=== PATIENT | female | born 1975 | race Caucasian/White ===

== ENCOUNTER 2017-01-15 10:25 | Day surgery (SDC) | payer OTHER ==
[~2017-01-15 10:25] MED LIST: Lactated Ringers 1,000 ML IV SCH
--- NOTE | 2017-01-15 11:19 | PCM.PREANE ---
Preanesthetic Assessment - Anesthesia/Transfusion/Family Hx Anesthesia History: Prior Anesthesia Without Reaction Family History of Anesthesia Reaction: No Transfusion History: No Prior Transfusion(s) - Review of Systems General: No Symptoms Pulmonary: No Symptoms Cardiovascular: No Symptoms Gastrointestinal: No symptoms Neurological: No Symptoms Other: Reports: None - Physical Assessment NPO Status Date: 01/14/17 O2 Sat by Pulse Oximetry: 97 Respiratory Rate: 16 Vital Signs: Last Vital Signs Temp 36.8 C 01/15/17 10:50 Pulse 100 01/15/17 10:50 Resp 16 01/15/17 10:50 BP 122/68 01/15/17 10:50 Pulse Ox 97 01/15/17 10:50 Height: 1.57 m Weight: 90.718 kg ASA Class: 2 Mental Status: Alert & Oriented x3 Airway Class: Mallampati = 1 Dentition: Reports: Normal Dentition ROM/Head Extension: Full Lungs: Clear to auscultation, Normal respiratory effort Cardiovascular: Regular Rate - Lab Values: Laboratory Last Values WBC 7.37 K/uL (4.0-11.0) 01/15/17 10:45 RBC 4.60 M/uL (4.30-5.90) 01/15/17 10:45 Hgb 11.6 g/dL (12.0-16.0) L 01/15/17 10:45 Hct 36.7 % (36.0-46.0) 01/15/17 10:45 MCV 79.8 fL (80.0-98.0) L 01/15/17 10:45 MCH 25.2 pg (27.0-32.0) L 01/15/17 10:45 MCHC 31.6 g/dL (31.0-37.0) 01/15/17 10:45 RDW Std Deviation 43.5 fl (28.0-62.0) 01/15/17 10:45 RDW Coeff of Arlin 15 % (11.0-15.0) 01/15/17 10:45 Plt Count 264 K/uL (150-400) 01/15/17 10:45 MPV 9.70 fL (7.40-12.00) 01/15/17 10:45 Nucleated RBC % 0.0 /100WBC 01/15/17 10:45 Nucleated RBCs # 0 K/uL 01/15/17 10:45 - Allergies Allergies/Adverse Reactions: Allergies Allergy/AdvReac Type Severity Reaction Status Date / Time No Known Allergies Allergy Verified 01/09/17 12:08 - Anesthesia Plan Pre-Op Medication Ordered: None - Acknowledgements Anesthesia Type Planned: General Anesthesia Pt an Appropriate Candidate for the Planned Anesthesia: Yes Alternatives and Risks of Anesthesia Discussed w Pt/Guardian: Yes Pt/Guardian Understands and Agrees with Anesthesia Plan: Yes PreAnesthesia Questionnaire HEENT History: Reports: None Cardiovascular History: Reports: Other (see below) Other Cardiovascular History: had "something in her leg" and had to stop taking comtrol pills....no anticoagulants taken Respiratory History: Reports: None Gastrointestinal History: Reports: GERD Genitourinary History: Reports: None 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: Musculoskeletal History: Reports: None Neurological History: Reports: None Psychiatric History: Reports: Anxiety Endocrine/Metabolic History: Reports: Obesity/BMI 30+ Hematologic History: Reports: None Immunologic History: Reports: None Oncologic (Cancer) History: Reports: None Dermatologic History: Reports: Other (see below) Other Dermatologic History: "cold sores" - Past Surgical History Head Surgeries/Procedures: Reports: None HEENT Surgical History: Reports: None Cardiovascular Surgical History: Reports: None Respiratory Surgical History: Reports: None GI Surgical History: Reports: Cholecystectomy, Other (see below) Other GI Surgeries/Procedures: abdominoplasty Female Surgical History: Reports: None Endocrine Surgical History: Reports: None Neurological Surgical History: Reports: None Musculoskeletal Surgical History: Reports: None Oncologic Surgical History: Reports: None Dermatological Surgical History: Reports: None - SUBSTANCE USE Smoking Status *Q: Never Smoker Tobacco Use Within Last Twelve Months: No Recreational Drug Use History: No - HOME MEDS Home Medications: Home Meds Famciclovir 3 tab PO ASDIRECTED PRN 01/09/17 [History] Multivitamin [Multivitamins] 1 tab PO DAILY 01/09/17 [History] Venlafaxine [Effexor XR] 150 mg PO DAILY 01/09/17 [History] - CURRENT (IN HOUSE) MEDS Current Meds: Current Medications Lactated Ringer's (Ringers, Lactated) 1,000 mls @ 125 mls/hr IV ASDIRECTED JULIANNA Discontinued Medications Lactated Ringer's (Ringers, Lactated) 1,000 mls @ 125 mls/hr IV ASDIRECTED JULIANNA Lactated Ringer's (Ringers, Lactated) 1,000 mls @ 125 mls/hr IV ASDIRECTED JULIANNA
[2017-01-15] MEDS ORDERED: Lidocaine 2% 5 ML SDV ONE (11:33)
[2017-01-15] MEDS ORDERED: fentaNYL 100 MCG/2 ML SDV ONE (11:33)
[2017-01-15] MEDS ORDERED: Propofol 200 MG/20 ML SDV ONE (11:33)
[2017-01-15] MEDS ORDERED: Midazolam 1 MG/ML 2 ML SDV ONE (11:33)
[2017-01-15] MEDS ORDERED: fentaNYL 100 MCG/2 ML SDV IVPUSH PRN (12:11)
[2017-01-15] MEDS ORDERED: Ketorolac 30 MG/ML SDV ONE (12:19)
[2017-01-15] MEDS ORDERED: Ondansetron 4 MG/2 ML SDV ONE (12:19)
--- NOTE | 2017-01-15 12:33 | PCM.OPNOTE ---
- General Post-Op/Procedure Note Date of Surgery/Procedure: 01/15/17 Operative Procedure(s): hysteroscopic polypectomy, fractional dilatation and curettage, thermal endometrial ablation. Findings: Uterus anteverted, 9 week size, sounds to 8 cm, cervix sounds to 4 cm. Fundal polyp removed, prominent endometrium, bilateral tubal ostia identified. Pre Op Diagnosis: menorrhagia, endometrial polyp Post-Op Diagnosis: Same Anesthesia Technique: General LMA Primary Surgeon: Mar Boswell Anesthesia Provider: Nessa Gunn Pathology: endometrial polyp, endometrial curettings (1), endometrial curettings (2), endocervical curettings. Fluid Replacement, Intraop: 1,100 EBL in mLs: 20 Drain/Tube Comments:: hysteroscopic deficit 170 ml NS Complications: None Known Condition: Good
--- NOTE | 2017-01-15 13:08 | PCM.POSTAN ---
POST ANESTHESIA ASSESSMENT - MENTAL STATUS Mental Status: alert, oriented - RESPIRATORY Respiratory Status: respiratory rate WNL, airway patent - CARDIOVASCULAR CV Status: pulse rate WNL, blood pressure stable - GASTROINTESTINAL GI Status: no symptoms - POST OP HYDRATION Hydration Status: adequate & stable
--- NOTE | 2017-01-15 13:40 | PCM48HPAN ---
Post Anesthesia Note - EVALUATION WITHIN 48HRS OF ANESTHETIC Vital Signs in Normal Range: Yes Patient Participated in Evaluation: Yes Respiratory Function Stable: Yes Airway Patent: Yes Cardiovascular Function Stable: Yes Hydration Status Stable: Yes Pain Control Satisfactory: Yes Nausea and Vomiting Control Satisfactory: Yes Mental Status Recovered: Yes
[2017-01-15 13:56] VITALS: BP 155/90
--- NOTE | 2017-01-15 19:59 | OR ---
SURGEON: Mar Boswell M.D. DATE OF PROCEDURE: 01/15/2017 PREOPERATIVE DIAGNOSES: Menorrhagia, uterine polyp. POSTOPERATIVE DIAGNOSES: Menorrhagia, uterine polyp. PROCEDURE: Hysteroscopic polypectomy, fractional D and C with thermal endometrial ablation. ANESTHESIA: General LMA. ESTIMATED BLOOD LOSS: 20 mL. FLUIDS: 1100 mL of crystalloid. HYSTEROSCOPIC DEFICIT: 170 mL of normal saline. FINDINGS: Uterus is anteverted 9 weeks size, sounds to 8 cm, cervix sounds to 4 cm. There was a fundal uterine polyp, bilateral tubal ostia were identified. COMPLICATIONS: None known. DISPOSITION: Stable to recovery. BRIEF HISTORY: This is a 41-year-old female with heavy periods. She has had a benign endometrial biopsy in the office as well as a saline enhanced ultrasound which showed a fundal polyp and no other lesions. She has been offered Lysteda, hormonal management, IUD, endometrial ablation with polypectomy. She desires to proceed with a thermal endometrial ablation with hysteroscopic polypectomy with risks discussed including bleeding, infection, uterine perforation with injury to surrounding organs, risk of scarring within the uterus potentially causing a hematometra, risk of masking future endometrial cancer, understanding all these risks, she does desire to proceed. She also understands that she must never become following the ablation as disastrous outcomes can occur with a . Her has had a vasectomy. DESCRIPTION OF PROCEDURE: With the patient in dorsal lithotomy position, under adequate general LMA, analgesia, the perineum and vagina were prepped with Betadine and draped in the usual fashion for vaginal surgery. Bimanual examination revealed an anteverted 9 weeks size uterus. Speculum was placed into the vagina. The anterior lip of the cervix was grasped with an Allis clamp. The cervix easily was dilated to an 8 mm Hegar dilator. The 6.5 mm hysteroscope was placed into the uterine cavity with excellent visualization, bilateral tubal ostia were identified, the fundal polyp was identified, the endometrium was overall prominent, but with no discrete lesions. The MyoSure Reach was then utilized to excise the polyp which was performed without any difficulty. The trap of tissue was sent as a separate specimen for polyp, then I wanted to proceed with endometrial curettage utilizing the MyoSure. However after resetting the trap for the tissue the MyoSure only worked for approximately 30 seconds and I was unable to continue with it, therefore, the MyoSure and hysteroscope were removed from the uterine cavity. Sharp curettage of the endocervix was performed and the tissue was collected with a Cytobrush. Sharp curettage of the uterine endometrium was then performed with a fairly large amount of tissue obtained, this being completed, the Cassandra ablation system was set up. The cervical stop was placed at 4 cm. The uterus had previously been sounded to 8 cm. The system was prepared and the arms were retracted inward. The ablation system was placed to the uterine fundus. The arms were then opened, the balloon was filled, the test of integrity for this system was performed and was intact with a 2 minute cycle was initiated. Once a 2 minute cycle was completed, the balloon was deflated, the arms were retracted and the tip was removed. All of the instruments were removed from the vagina. Final sponge, needle, and instrument counts were reported as correct. There were no known complications. The patient was transferred to recovery in good condition. SUMA MOY /[id number]
== END 2017-01-15 13:40 | disposition home or self-care (01) ==
LOC: MW.SDS 10:25
PROVIDERS: ATTEND Obstetrics & Gynecology
PROC: 0UB98ZX Excision of Uterus, Via Natural or Artificial Opening Endoscopic, Diagnostic (ICD-10-PCS; principal; 2017-01-15)
PROC: 0UDB8ZX Extraction of Endometrium, Via Natural or Artificial Opening Endoscopic, Diagnostic (ICD-10-PCS; 2017-01-15)
DX: N84.0 Polyp of corpus uteri (principal); G43.909 Migraine, unspecified, not intractable, without status migrainosus; F32.9 Major depressive disorder, single episode, unspecified; Z79.899 Other long term (current) drug therapy; Z98.890 Other specified postprocedural states; N92.0 Excessive and frequent menstruation with regular cycle
CPT/HCPCS: 36415; 58558; 84703; 85027; J1885; J2250; J2405; J3010; 00952; 88305; J2704

== ENCOUNTER 2018-07-04 11:26 | Emergency (ER) | payer OTHER ==
--- NOTE | 2018-07-04 11:28 | EDM.PDOC ---
ED HPI GENERAL MEDICAL PROBLEM - General Stated Complaint: SORE THROAT Time Seen by Provider: 07/04/18 11:28 Source of Information: Reports: Patient - History of Present Illness INITIAL COMMENTS - FREE TEXT/NARRATIVE: HISTORY AND PHYSICAL: History of present illness: []Sore throat for 24 hours increasing in severity no trouble with liquids some difficulty with solid food, recent strep contact No Drooling trismus or muffled voice Review of systems: As per history of present illness and below otherwise all systems reviewed and negative. Past medical history: As per history of present illness and as reviewed below otherwise noncontributory. Surgical history: As per history of present illness and as reviewed below otherwise noncontributory. Social history: No reported history of drug or alcohol abuse. Family history: As per history of present illness and as reviewed below otherwise noncontributory. Physical exam: HEENT: Atraumatic, normocephalic, pupils reactive, negative for conjunctival pallor or scleral icterus, mucous membranes moist, throat clear, neck supple, nontender, trachea midline. Moderate erythema anterior lymph chain tenderness and swelling Lungs: Clear to auscultation, breath sounds equal bilaterally, chest nontender. Heart: S1S2, regular, negative for clicks, rubs, or JVD. Abdomen: Soft, nondistended, nontender. Negative for masses or hepatosplenomegaly. Negative for costovertebral tenderness. Pelvis: Stable nontender. Genitourinary: Deferred. Rectal: Deferred. Extremities: Atraumatic, negative for cords or calf pain. Neurovascular unremarkable. Neuro: Awake, alert, oriented. Cranial nerves II through XII unremarkable. Cerebellum unremarkable. Motor and sensory unremarkable throughout. Exam nonfocal. Diagnostics: []Clinical Therapeutics: []Gram Rocephin IM Amoxicillin Impression: [] pharyngitis Definitive disposition and diagnosis as appropriate pending reevaluation and review of above. - Related Data Allergies Allergy/AdvReac Type Severity Reaction Status Date / Time No Known Allergies Allergy Verified 01/09/17 12:08 Home Meds: Home Meds Famciclovir 3 tab PO ASDIRECTED PRN 01/09/17 [History] Multivitamin [Multivitamins] 1 tab PO DAILY 01/09/17 [History] Venlafaxine [Effexor XR] 150 mg PO DAILY 01/09/17 [History] Acetaminophen/oxyCODONE [Percocet 325-5 MG] 1 tab PO Q6H PRN #10 tablet [Rx] Ibuprofen [IMW: Ibuprofen] 600 mg PO .EVERY 8 HOURS PRN #30 tab 01/15/17 [Rx] Past Medical History HEENT History: Reports: None Cardiovascular History: Reports: Other (See Below) Other Cardiovascular History: had "something in her leg" and had to stop taking comtrol pills....no anticoagulants taken Respiratory History: Reports: None Gastrointestinal History: Reports: GERD Genitourinary History: Reports: None 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: Musculoskeletal History: Reports: None Neurological History: Reports: None Psychiatric History: Reports: Anxiety Endocrine/Metabolic History: Reports: Obesity/BMI 30+ Hematologic History: Reports: None Immunologic History: Reports: None Oncologic (Cancer) History: Reports: None Dermatologic History: Reports: Other (See Below) Other Dermatologic History: "cold sores" - Past Surgical History GI Surgical History: Reports: Cholecystectomy, Other (See Below) Social & Family History - Family History Family Medical History: Noncontributory ED ROS GENERAL - Review of Systems Review Of Systems: See Below ED EXAM, GENERAL - Physical Exam Exam: See Below Departure - Departure Time of Disposition: 11:36 Disposition: Home, Self-Care 01 Condition: Good Clinical Impression: Pharyngitis - Discharge Information Additional Instructions: The following information is given to patients seen in the emergency department who are being discharged to home. This information is to outline your options for follow-up care. We provide all patients seen in our emergency department with a follow-up referral. The need for follow-up, as well as the timing and circumstances, are variable depending upon the specifics of your emergency department visit. If you don't have a primary care physician on staff, we will provide you with a referral. We always advise you to contact your personal physician following an emergency department visit to inform them of the circumstance of the visit and for follow-up with them and/or the need for any referrals to a consulting specialist. The emergency department will also refer you to a specialist when appropriate. This referral assures that you have the opportunity for follow-up care with a specialist. All of these measure are taken in an effort to provide you with optimal care, which includes your follow-up. Under all circumstances we always encourage you to contact your private physician who remains a resource for coordinating your care. When calling for follow-up care, please make the office aware that this follow-up is from your recent emergency room visit. If for any reason you are refused follow-up, please contact the [facility] emergency department at and asked to speak to the emergency department charge nurse.
[2018-07-04] MEDS ORDERED: cefTRIAXone 1,000 MG in Lidocaine 1% 4 ML IM ONE (11:36)
[2018-07-04 12:03] VITALS: BP 150/95
== END 2018-07-04 12:00 | disposition home or self-care (01) ==
LOC: MW.ED 11:26
DX: J02.9 Acute pharyngitis, unspecified (principal); E66.9 Obesity, unspecified
CPT/HCPCS: 96372; 99282; J0696; J2001

== ENCOUNTER 2019-07-13 07:49 | Day surgery (SDC) | payer OTHER ==
[2019-07-12 14:56] LABS: BLOOD UREA NITROGEN,BUN 16 mg/dL (7.0-18.0); CARBON DIOXIDE,CO2 28.5 mmol/L (21.0-32.0); CHLORIDE,CL 103 mmol/L (98-107); GLUCOSE RANDOM 98 mg/dL (74-106); POTASSIUM,K 4.1 mmol/L (3.5-5.1); SODIUM,NA 140 mmol/L (136-145)
[~2019-07-13 07:49] MED LIST changes: +Fluorescein 5 ML Vial ONE; +Glycopyrrolate 0.2 MG/ML SDV ONE; -Lactated Ringers 1,000 ML IV SCH; +Lidocaine 2% 5 ML SDV ONE; +Midazolam 1 MG/ML 2 ML SDV ONE; +Neostigmine Methylsulfate 1 MG/ML 5 ML Syringe ONE; +Ondansetron 4 MG/2 ML SDV ONE; +Propofol 200 MG/20 ML SDV ONE; +Rocuronium 100 MG/10 ML Syringe ONE; +fentaNYL 250 MCG/5 ML SDV ONE
[2019-07-13] MEDS: Lactated Ringers 1,000 ML IV SCH ×2 (08:12→17:21)
[2019-07-13] MEDS ORDERED: Scopolamine 1.5 MG Transdermal Patch TRDERM PRN (08:16)
--- NOTE | 2019-07-13 08:16 | PCM.PREANE ---
Preanesthetic Assessment - Anesthesia/Transfusion/Family Hx Anesthesia History: Prior Anesthesia Without Reaction Family History of Anesthesia Reaction: No Transfusion History: No Prior Transfusion(s) - Review of Systems General: No Symptoms Pulmonary: No Symptoms Cardiovascular: No Symptoms Gastrointestinal: No Symptoms Neurological: No Symptoms Other: Reports: None - Physical Assessment Height: 5 ft 1.75 in Weight: 94.801 kg ASA Class: 2 Mental Status: Alert & Oriented x3 Airway Class: Mallampati = 2 Dentition: Reports: Normal Dentition ROM/Head Extension: Full Lungs: Clear to Auscultation, Normal Respiratory Effort Cardiovascular: Regular Rate, Regular Rhythm - Lab Values: Laboratory Last Values WBC 8.11 K/uL (4.0-11.0) 07/12/19 13:42 RBC 4.61 M/uL (4.30-5.90) 07/12/19 13:42 Hgb 12.5 g/dL (12.0-16.0) 07/12/19 13:42 Hct 37.9 % (36.0-46.0) 07/12/19 13:42 MCV 82.2 fL (80.0-98.0) 07/12/19 13:42 MCH 27.1 pg (27.0-32.0) 07/12/19 13:42 MCHC 33.0 g/dL (31.0-37.0) 07/12/19 13:42 RDW Std Deviation 44.0 fl (28.0-62.0) 07/12/19 13:42 RDW Coeff of Arlin 15 % (11.0-15.0) 07/12/19 13:42 Plt Count 284 K/uL (150-400) 07/12/19 13:42 MPV 10.50 fL (7.40-12.00) 07/12/19 13:42 Nucleated RBC % 0.0 /100WBC 07/12/19 13:42 Nucleated RBCs # 0 K/uL 07/12/19 13:42 Sodium 140 mmol/L (136-145) 07/12/19 13:42 Potassium 4.1 mmol/L (3.5-5.1) 07/12/19 13:42 Chloride 103 mmol/L (98-107) 07/12/19 13:42 Carbon Dioxide 28.5 mmol/L (21.0-32.0) 07/12/19 13:42 BUN 16 mg/dL (7.0-18.0) 07/12/19 13:42 Creatinine 1.1 mg/dL (0.6-1.0) H 07/12/19 13:42 Est Cr Clr Drug Dosing 51.03 mL/min 07/12/19 13:42 Estimated GFR (MDRD) 54.0 ml/min 07/12/19 13:42 Glucose 98 mg/dL (74-106) 07/12/19 13:42 Calcium 8.8 mg/dL (8.5-10.1) 07/12/19 13:42 HCG, Quant < 1.0 mIU/mL 07/12/19 13:42 Blood Type A POSITIVE 07/12/19 13:42 Antibody Screen NEGATIVE 07/12/19 13:42 - Allergies Allergies/Adverse Reactions: Allergies Allergy/AdvReac Type Severity Reaction Status Date / Time No Known Allergies Allergy Verified 07/08/19 08:16 - Blood Blood Available: No - Anesthesia Plan Pre-Op Medication Ordered: Other (scop patch) - Acknowledgements Anesthesia Type Planned: General Anesthesia Pt an Appropriate Candidate for the Planned Anesthesia: Yes Alternatives and Risks of Anesthesia Discussed w Pt/Guardian: Yes Pt/Guardian Understands and Agrees with Anesthesia Plan: Yes Additional Comments: PMH: migraines rxed with imitrex PLAN: GA with LMA or ETT PreAnesthesia Questionnaire - Past Health History Medical/Surgical History: Denies Medical/Surgical History HEENT History: Reports: None Cardiovascular History: Reports: Other (See Below) Other Cardiovascular History: had "something in her leg" and had to stop taking comtrol pills....no anticoagulants taken, BP elevated at clinic Respiratory History: Reports: None Gastrointestinal History: Reports: GERD Other Gastrointestinal History: occasional reflux at night Genitourinary History: Reports: None 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: Musculoskeletal History: Reports: None Neurological History: Reports: Migraines Psychiatric History: Reports: Anxiety Endocrine/Metabolic History: Reports: Obesity/BMI 30+ Hematologic History: Reports: None Immunologic History: Reports: None Oncologic (Cancer) History: Reports: None Dermatologic History: Reports: None - Past Surgical History Head Surgeries/Procedures: Reports: None HEENT Surgical History: Reports: None Cardiovascular Surgical History: Reports: None Respiratory Surgical History: Reports: None GI Surgical History: Reports: Cholecystectomy, Other (See Below) Other GI Surgeries/Procedures: abdominoplasty Female Surgical History: Reports: D&C, Endometrial Ablation Other Female Surgeries/Procedures: hysteroscopy, polypectomy, D&C, thermal endometrial ablation Endocrine Surgical History: Reports: None Neurological Surgical History: Reports: None Musculoskeletal Surgical History: Reports: None Oncologic Surgical History: Reports: None Dermatological Surgical History: Reports: None - HOME MEDS Home Medications: Home Meds Famciclovir 3 tab PO ASDIRECTED PRN 01/09/17 [History] Multivitamin [Multivitamins] 1 tab PO DAILY 01/09/17 [History] SUMAtriptan Succinate [Imitrex] 100 mg PO ASDIRECTED PRN 07/08/19 [History] Venlafaxine HCl [Venlafaxine ER] 150 mg PO DAILY 07/08/19 [History] valACYclovir [Valtrex] 1,000 mg PO ASDIRECTED PRN 07/08/19 [History] - CURRENT (IN HOUSE) MEDS Current Meds: Current Medications Lactated Ringer's (Ringers, Lactated) 1,000 mls @ 100 mls/hr IV ASDIRECTED JULIANNA Last Admin: 07/13/19 08:12 Dose: 100 mls/hr Discontinued Medications Fentanyl (Sublimaze) Confirm Administered Dose 250 mcg .ROUTE .STK-MED ONE Stop: 07/13/19 07:00 Fluorescein Sodium (Ak-Fluor) Confirm Administered Dose 5 ml .ROUTE .STK-MED ONE Stop: 07/13/19 07:44 Glycopyrrolate (Robinul) Confirm Administered Dose 0.4 mg .ROUTE .STK-MED ONE Stop: 07/13/19 07:00 Lidocaine (Xylocaine-Mpf 2%) Confirm Administered Dose 5 ml .ROUTE .STK-MED ONE Stop: 07/13/19 07:00 Midazolam HCl (Versed 1 Mg/Ml) Confirm Administered Dose 2 mg .ROUTE .STK-MED ONE Stop: 07/13/19 07:00 Neostigmine Methylsulfate (Neostigmine) Confirm Administered Dose 5 mg .ROUTE .STK-MED ONE Stop: 07/13/19 07:00 Ondansetron HCl (Zofran) Confirm Administered Dose 4 mg .ROUTE .STK-MED ONE Stop: 07/13/19 07:00 Propofol (Diprivan 20 Ml) Confirm Administered Dose 200 mg .ROUTE .STK-MED ONE Stop: 07/13/19 07:00 Rocuronium [place] (Zemuron) Confirm Administered Dose 100 mg .ROUTE .STK-MED ONE Stop: 07/13/19 07:00
[2019-07-13] MEDS ORDERED: ceFAZolin 1 GM Vial ONE (09:12)
[2019-07-13] MEDS ORDERED: Sodium Chloride 0.9% 20 ML ONE (09:12)
[2019-07-13] MEDS ORDERED: ePHEDrine 50 MG/ML SDV ONE (09:18)
[2019-07-13] MEDS ORDERED: Phenylephrine/Normal Saline 100 MCG/ML 10 ML Syringe ONE (09:20)
[2019-07-13] MEDS ORDERED: Furosemide 40 MG/4 ML VIAL ONE (09:21)
[2019-07-13] MEDS ORDERED: HYDROmorphone 2 MG/ML Syringe ONE (09:35)
--- NOTE | 2019-07-13 10:50 | PCM.OPNOTE ---
- General Post-Op/Procedure Note Date of Surgery/Procedure: 07/13/19 Operative Procedure(s): total vaginal hysterectomy with cystoscopy. Findings: uterus 12 weeks size, with fibroids, on cystoscopy there was copious flow of bright green urine after fluoroscein, no trauma to bladder mucosa Pre Op Diagnosis: menorrhagia Post-Op Diagnosis: Same Anesthesia Technique: General ET Tube Primary Surgeon: Mar Boswell Secondary Surgeon: Jose Rafael Stinson Anesthesia Provider: Charles Morrow Weave Defect Charting Clerk: Charles Bonner Pathology: uterus Fluid Replacement, Intraop: 2,300 EBL in mLs: 200 Complications: None Known Condition: Good
[2019-07-13] MEDS ORDERED: Ketorolac 30 MG/ML SDV IVPUSH ONE (10:51)
[2019-07-13] MEDS ORDERED: Acetaminophen/oxyCODONE 325-5 MG Tab PO PRN ×2 (10:51)
[2019-07-13] MEDS ORDERED: Ondansetron 4 MG/2 ML SDV IVPUSH PRN (10:51)
[2019-07-13] MEDS ORDERED: Ketorolac 30 MG/ML SDV IVPUSH PRN (10:51)
[2019-07-13] MEDS ORDERED: Promethazine 25 MG/ML SDV IM PRN (10:51)
[2019-07-13] MEDS ORDERED: Morphine 4 MG/ML Syringe IVPUSH PRN (10:51)
--- NOTE | 2019-07-13 11:51 | PCM.POSTAN ---
POST ANESTHESIA ASSESSMENT - MENTAL STATUS Mental Status: Alert, Oriented - VITAL SIGNS Vital Signs: Last Vital Signs Temp 97.9 F 07/13/19 10:49 Pulse 102 H 07/13/19 11:34 Resp 8 L 07/13/19 11:34 BP 128/74 07/13/19 11:34 Pulse Ox 99 07/13/19 11:34 - RESPIRATORY Respiratory Status: Respiratory Rate WNL, Airway Patent, O2 Saturation Stable, Supplemental Oxygen - CARDIOVASCULAR CV Status: Pulse Rate WNL, Blood Pressure Stable - GASTROINTESTINAL GI Status: No Symptoms - POST OP HYDRATION Hydration Status: Adequate & Stable
--- NOTE | 2019-07-13 15:06 | OR ---
SURGEON: Mar Boswell M.D. DATE OF PROCEDURE: 07/13/2019 PREOPERATIVE DIAGNOSIS: Menometrorrhagia. POSTOPERATIVE DIAGNOSIS: Menometrorrhagia. PROCEDURE: Total vaginal hysterectomy with cystoscopy. PRIMARY SURGEON: Mar Boswell MD. ASSISTANTS: Jose Rafael Stinson MD, and second operator/assistant foreman, ALEX Mix. ANESTHESIA: General endotracheal. FLUIDS: 2300 mL of crystalloid. ESTIMATED BLOOD LOSS: 200 mL. FINDINGS: Uterus enlarged to 12-week size with appearance of fibroids. Upon cystoscopy, there was copious flow of bright green urine from bilateral ureteral orifices after fluorescein was given. COMPLICATIONS: None known. PATHOLOGY: Uterus with cervix. DISPOSITION: Stable to recovery. BRIEF HISTORY: This is a 44-year-old female. She presents with ongoing bleeding. She has previously had hysteroscopy, D and C, ablation, Mirena IUD and was previously on oral contraceptive pills. However, she has migraines with aura and therefore was no longer able to use oral contraceptive pills, and despite all of these interventions, she continues to bleed for approximately 20 days per month, and she desires to proceed with definitive management with hysterectomy with risks discussed including bleeding; infection; injury to bowel, bladder, blood vessels, ureters, or other organs; risk of thromboembolic event; risk of change in sexual function; and risk of anesthesia. Understanding all these risks, she does desire to proceed. DESCRIPTION OF PROCEDURE: With the patient in dorsal lithotomy position, under adequate general endotracheal anesthesia, the abdomen was prepped with chlorhexidine. The perineum and vagina were prepped with Betadine and draped in the usual fashion for vaginal surgery. SCDs were in place. Maldonado catheter had been placed and an appropriate time-out was held. She had received Ancef 2 g IV. After the time- out, bimanual examination revealed a 12-week size uterus with good descent. A weighted speculum was placed posteriorly, right angle retractor was placed anteriorly. The cervix was grasped with a Carmen tenaculum and circumscribed using electrocautery. The vaginal mucosa was dissected away from the cervix and the anterior vaginal mucosa was elevated and undermined using Metzenbaum scissors until the visceral peritoneum was identified and this was entered. A finger was placed into the peritoneal cavity and the smooth anterior surface of the uterus was palpated as well as the catheter anteriorly. Right angle retractor was placed. The posterior cul-de-sac was entered sharply posteriorly and a Richard-Auvard speculum was placed posteriorly. The uterosacral ligaments were doubly clamped, cut, and ligated using a free tie followed by Sam ligature of 2-0 Polysorb. This was retained. Three additional pedicles were taken on the right and the left, doubly clamping with the Sam clamp, cutting, and ligating with a free tie, a simple suture followed by Sam ligature of 2-0 Polysorb. As the fundus of the uterus was approached, a single clamp technique was utilized with the Sam clamp, clamping, cutting, and ligating with a simple suture of 2-0 Polysorb until the utero-ovarian ligaments were then identified. On the right, the utero-ovarian ligament was doubly clamped and cut and ligated using a free tie followed by a Sam ligature of 2-0 Polysorb. This was retained. On the left, at this point, only the tube was remaining and this was clamped, cut, and ligated using a free tie. The uterus was then delivered vaginally. The pedicles were inspected and all pedicles were hemostatic. The retained uterosacral ligament ligatures were ligated to the vaginal mucosa apices on the right and the left. There was bleeding along the left vaginal cuff that was controlled with electrocautery and a [id number] suture. Once good hemostasis was confirmed, the vaginal cuff was closed with a running lock suture of 0 Polysorb. The catheter was deflated. Cystoscopy was then performed using normal saline as the distending medium. After IV fluorescein was given as well as Lasix, bilateral ureteral orifices were identified. There was copious flow of bright green urine. The bladder mucosa was inspected and there were no areas of trauma. Therefore, the cystoscope was removed and the catheter was replaced. There was a small amount of bleeding from the urethral meatus after cystoscopy that was controlled with pressure. The vaginal cuff was again inspected with a speculum and was hemostatic. Final sponge, needle, and instrument counts were reported as correct. There were no known complications, the patient was transferred to recovery in good condition. SUMA MOY /[id number]
[2019-07-14 06:24] LABS: CARBON DIOXIDE,CO2 31.4 mmol/L (21.0-32.0); POTASSIUM,K 3.6 mmol/L (3.5-5.1)
[2019-07-14 07:59] VITALS: BP 133/70; PULSE 93
--- NOTE | 2019-07-14 08:07 | PCM48HPAN ---
Post Anesthesia Note - EVALUATION WITHIN 48HRS OF ANESTHETIC Vital Signs in Normal Range: Yes Patient Participated in Evaluation: Yes Respiratory Function Stable: Yes Airway Patent: Yes Cardiovascular Function Stable: Yes Hydration Status Stable: Yes Pain Control Satisfactory: Yes Nausea and Vomiting Control Satisfactory: Yes Mental Status Recovered: Yes Vital Signs: Last Vital Signs Temp 97.9 F 07/14/19 07:58 Pulse 93 07/14/19 07:58 Resp 16 07/14/19 07:58 BP 133/70 07/14/19 07:58 Pulse Ox 95 07/14/19 07:58
--- NOTE | 2019-07-14 08:54 | PCM.SURGPN ---
- General Info Date of Service: 07/14/19 Date of Surgery/Procedure: 07/13/19 POD#: 1 Post-Op Diagnosis: menorrhagia Functional Status: Reports: Pain Controlled, Tolerating Diet, Ambulating, Urinating - Review of Systems General: Reports: No Symptoms HEENT: Reports: No Symptoms Pulmonary: Reports: No Symptoms Cardiovascular: Reports: No Symptoms Gastrointestinal: Reports: No Symptoms Genitourinary: Reports: No Symptoms Musculoskeletal: Reports: No Symptoms Skin: Reports: No Symptoms Neurological: Reports: No Symptoms Psychiatric: Reports: No Symptoms - Patient Data Vitals - Most Recent: Last Vital Signs Temp 36.6 C 07/14/19 07:58 Pulse 93 07/14/19 07:58 Resp 16 07/14/19 07:58 BP 133/70 07/14/19 07:58 Pulse Ox 95 07/14/19 07:58 Weight - Most Recent: 94.801 kg I&O - Last 24 Hours: Intake & Output 07/13/19 07/14/19 07/14/19 22:59 06:59 14:59 Intake Total 2055 Output Total 950 660 Balance -950 1395 Lab Results Last 24 Hrs: Laboratory Results - last 24 hr 07/14/19 07/14/19 Range/Units 06:00 06:00 WBC 9.36 (4.0-11.0) K/uL RBC 3.84 L (4.30-5.90) M/uL Hgb 10.1 L (12.0-16.0) g/dL Hct 32.2 L (36.0-46.0) % MCV 83.9 (80.0-98.0) fL MCH 26.3 L (27.0-32.0) pg MCHC 31.4 (31.0-37.0) g/dL RDW Std Deviation 46.7 (28.0-62.0) fl RDW Coeff of Arlin 15 (11.0-15.0) % Plt Count 221 (150-400) K/uL MPV 9.80 (7.40-12.00) fL Neut % (Auto) 69.5 (48.0-80.0) % Lymph % (Auto) 20.3 (16.0-40.0) % [place] % (Auto) 8.1 (0.0-15.0) % Eos % (Auto) 2.0 (0.0-7.0) % Baso % (Auto) 0.1 (0.0-1.5) % Neut # (Auto) 6.5 H (1.4-5.7) K/uL Lymph # (Auto) 1.9 (0.6-2.4) K/uL [place] # (Auto) 0.8 (0.0-0.8) K/uL Eos # (Auto) 0.2 (0.0-0.7) K/uL Baso # (Auto) 0.0 (0.0-0.1) K/uL Nucleated RBC % 0.0 /100WBC Nucleated RBCs # 0 K/uL Sodium 140 (136-145) mmol/L Potassium 3.6 (3.5-5.1) mmol/L Chloride 103 (98-107) mmol/L Carbon Dioxide 31.4 (21.0-32.0) mmol/L BUN 12 (7.0-18.0) mg/dL Creatinine 1.2 H (0.6-1.0) mg/dL Est Cr Clr Drug Dosing 46.78 mL/min Estimated GFR (MDRD) 48.8 ml/min Glucose 113 H (74-106) mg/dL Calcium 7.6 L (8.5-10.1) mg/dL Med Orders - Current: Current Medications Lactated Ringer's (Ringers, Lactated) 1,000 mls @ 100 mls/hr IV ASDIRECTED [facility] Last Admin: 07/13/19 17:21 Dose: 100 mls/hr Ketorolac Tromethamine (Toradol) 30 mg IVPUSH Q6H PRN PRN Reason: Pain (severe 7-10) Stop: 07/18/19 10:51 Last Admin: 07/13/19 18:04 Dose: 30 mg Morphine Sulfate (Morphine) 4 mg IVPUSH Q2H PRN PRN Reason: Pain (severe 7-10) Last Admin: 07/13/19 12:58 Dose: 4 mg Ondansetron HCl (Zofran) 4 mg IVPUSH Q6H PRN PRN Reason: Nausea/Vomiting Oxycodone/Acetaminophen (Percocet 325-5 Mg) 1 tab PO Q4H PRN PRN Reason: Pain (moderate 4-6) Oxycodone/Acetaminophen (Percocet 325-5 Mg) 2 tab PO Q4H PRN PRN Reason: Pain (moderate 4-6) Last Admin: 07/13/19 16:22 Dose: 2 tab Promethazine HCl (Phenergan) 25 mg IM Q6H PRN PRN Reason: Nausea/Vomiting Scopolamine (Transderm-Scop) 1.5 mg TRDERM Q72H PRN PRN Reason: Nausea/Vomiting Last Admin: 07/13/19 08:50 Dose: 1.5 mg Discontinued Medications Cefazolin Sodium (Ancef) Confirm Administered Dose 2 gm .ROUTE .STK-MED ONE Stop: 07/13/19 09:13 Ephedrine Sulfate (Ephedrine Sulfate) Confirm Administered Dose 50 mg .ROUTE .STK-MED ONE Stop: 07/13/19 09:19 Fentanyl (Sublimaze) Confirm Administered Dose 250 mcg .ROUTE .STK-MED ONE Stop: 07/13/19 07:00 Fluorescein Sodium (Ak-Fluor) Confirm Administered Dose 5 ml .ROUTE .STK-MED ONE Stop: 07/13/19 07:44 Furosemide (Lasix) Confirm Administered Dose 40 mg .ROUTE .STK-MED ONE Stop: 07/13/19 09:22 Glycopyrrolate (Robinul) Confirm Administered Dose 0.4 mg .ROUTE .STK-MED ONE Stop: 07/13/19 07:00 Hydromorphone HCl (Dilaudid) Confirm Administered Dose 2 mg .ROUTE .STK-MED ONE Stop: 07/13/19 09:36 Sodium Chloride (Normal Saline) Confirm Administered Dose 20 mls @ as directed .ROUTE .STK-MED ONE Stop: 07/13/19 09:13 Ketorolac Tromethamine (Toradol) 30 mg IVPUSH ONETIME ONE Stop: 07/13/19 10:52 Last Admin: 07/13/19 12:53 Dose: Not Given Lidocaine (Xylocaine-Mpf 2%) Confirm Administered Dose 5 ml .ROUTE .STK-MED ONE Stop: 07/13/19 07:00 Midazolam HCl (Versed 1 Mg/Ml) Confirm Administered Dose 2 mg .ROUTE .STK-MED ONE Stop: 07/13/19 07:00 Neostigmine Methylsulfate (Neostigmine) Confirm Administered Dose 5 mg .ROUTE .STK-MED ONE Stop: 07/13/19 07:00 Ondansetron HCl (Zofran) Confirm Administered Dose 4 mg .ROUTE .STK-MED ONE Stop: 07/13/19 07:00 Phenylephrine HCl (Phenylephrine In Ns 100 Mcg/Ml) Confirm Administered Dose 1 mg .ROUTE .STK-MED ONE Stop: 07/13/19 09:21 Propofol (Diprivan 20 Ml) Confirm Administered Dose 200 mg .ROUTE .STK-MED ONE Stop: 07/13/19 07:00 Rocuronium [place] (Zemuron) Confirm Administered Dose 100 mg .ROUTE .STK-MED ONE Stop: 07/13/19 07:00 - Exam General: Alert, Oriented HEENT: Pupils Equal Neck: Supple Lungs: Clear to Auscultation, Normal Respiratory Effort Cardiovascular: Regular Rate, Regular Rhythm GI/Abdominal Exam: Normal Bowel Sounds, Soft, No Organomegaly, No Distention, No Mass Extremities: No Pedal Edema Skin: Warm, Dry, Intact Neurological: No New Focal Deficit Psy/Mental Status: Alert, Normal Affect, Normal Mood - Problem List Review Problem List Initiated/Reviewed/Updated: Yes - My Orders Last 24 Hours: Active Orders 24 hr Category Date Time Status Patient Status [ADT] Routine ADT 07/13/19 10:51 Active Antiembolic Devices [RC] PER UNIT ROUTINE Care 07/13/19 10:52 Active May Shower [RC] ASDIRECTED Care 07/13/19 10:51 Active Notify Provider Intake and Out [RC] ASDIRECTED Care 07/13/19 10:51 Active Notify Provider Vital Signs [RC] ASDIRECTED Care 07/13/19 10:51 Active Oxygen Therapy [RC] ASDIRECTED Care 07/13/19 10:51 Active RT Incentive Spirometry [RC] Q2HWA Care 07/13/19 10:51 Active Ready for Discharge [RC] PER UNIT ROUTINE Care 07/14/19 08:32 Active Up With Assistance [RC] PER UNIT ROUTINE Care 07/13/19 10:51 Active Up ad Debra [RC] PER UNIT ROUTINE Care 07/13/19 10:51 Active Urinary Catheter Removal [RC] ASDIRECTED Care 07/13/19 10:51 Active Regular Diet [DIET] Diet 07/13/19 Dinner Active Acetaminophen/oxyCODONE [Percocet 325-5 MG] Med 07/13/19 10:51 Active 1 tab PO Q4H PRN Acetaminophen/oxyCODONE [Percocet 325-5 MG] Med 07/13/19 10:51 Active 2 tab PO Q4H PRN Ketorolac [Toradol] Med 07/13/19 10:51 Active 30 mg IVPUSH Q6H PRN Morphine Med 07/13/19 10:51 Active 4 mg IVPUSH Q2H PRN Ondansetron [Zofran] Med 07/13/19 10:51 Active 4 mg IVPUSH Q6H PRN Promethazine [Phenergan] Med 07/13/19 10:51 Active 25 mg IM Q6H PRN Scopolamine [Transderm-Scop] Med 07/13/19 08:16 Active 1.5 mg TRDERM Q72H PRN Peripheral IV Discontinue [OM.PC] Routine Oth 07/13/19 10:51 Ordered Sequential Compression Device [OM.PC] Per Unit Routine Oth 07/13/19 10:51 Ordered Resuscitation Status Routine Resus Stat 07/13/19 10:51 Ordered Medication Orders Lactated Ringer's (Ringers, Lactated) 1,000 mls @ 100 mls/hr IV ASDIRECTED [facility]UL[facility] Last Admin: 07/13/19 17:21 Dose: 100 mls/hr Infusion: 07/13/19 17:21 Dose: 100 mls/hr Admin: 07/13/19 08:12 Dose: 100 mls/hr Ketorolac Tromethamine (Toradol) 30 mg IVPUSH Q6H PRN PRN Reason: Pain (severe 7-10) Stop: 07/18/19 10:51 Last Admin: 07/13/19 18:04 Dose: 30 mg Morphine Sulfate (Morphine) 4 mg IVPUSH Q2H PRN PRN Reason: Pain (severe 7-10) Last Admin: 07/13/19 12:58 Dose: 4 mg Ondansetron HCl (Zofran) 4 mg IVPUSH Q6H PRN PRN Reason: Nausea/Vomiting Oxycodone/Acetaminophen (Percocet 325-5 Mg) 1 tab PO Q4H PRN PRN Reason: Pain (moderate 4-6) Oxycodone/Acetaminophen (Percocet 325-5 Mg) 2 tab PO Q4H PRN PRN Reason: Pain (moderate 4-6) Last Admin: 07/13/19 16:22 Dose: 2 tab Promethazine HCl (Phenergan) 25 mg IM Q6H PRN PRN Reason: Nausea/Vomiting Scopolamine (Transderm-Scop) 1.5 mg TRDERM Q72H PRN PRN Reason: Nausea/Vomiting Last Admin: 07/13/19 08:50 Dose: 1.5 mg - Assessment Assessment (Free Text/Narrative):: POD#1 after TVH, stable, minimal discharge, pain well controlled tolerating diet. - Plan Plan (Free Text/Narrative):: Dismiss to home, discharge instructions reviewed.
== END 2019-07-14 09:55 | disposition home or self-care (01) ==
LOC: MW.SDS 07:49 → MW.MS 11:31 → MW.SDS 07-14 09:55
PROVIDERS: ATTEND Obstetrics & Gynecology
DX: D25.9 Leiomyoma of uterus, unspecified (principal); G43.909 Migraine, unspecified, not intractable, without status migrainosus; O99.345 Other mental disorders complicating the puerperium; F53.0 Postpartum depression; E66.9 Obesity, unspecified; Z68.38 Body mass index [BMI] 38.0-38.9, adult; Z90.49 Acquired absence of other specified parts of digestive tract; Z79.899 Other long term (current) drug therapy
CPT/HCPCS: 36415; 58550; 80048; 84702; 85025; 85027; 86850; 86900; 86901; A9270; J0690; J1170; J1885; J1940; J2001; J2250; J2270; J2370; J2405; J2704; J3010; J3490; J7120